=== PATIENT | male | born 1995 | race Hispanic/Latino ===

== ENCOUNTER 2022-03-26 09:03 | Emergency (ER) | payer OTHER ==
[~2022-03-26] VITALS: Ht 162.6 cm; Wt 70.0 kg
[2022-03-26] MEDS ORDERED: AZITHROMYCIN1 GM PO (09:14)
[2022-03-26] MEDS ORDERED: 12HOUR DECONGE120 MG PO (09:46)
[2022-03-26] MEDS ORDERED: MOTRIN800 MG PO (09:46)
[2022-03-26] MEDS ORDERED: BACTRIM DS1 TAB PO (09:46)
[2022-03-26 09:54] VITALS: BP 135/77
== END 2022-03-26 10:06 | disposition home or self-care (01) | DRG 153 ==
LOC: ED 09:03
DX: J01.10 Acute frontal sinusitis, unspecified (principal)

== ENCOUNTER 2022-04-04 23:57 | Emergency (ER) | payer OTHER ==
[~2022-04-04] VITALS: Ht 162.6 cm; Wt 69.0 kg
[~2022-04-04 23:57] MED LIST: 12HOUR DECONGE120 MG PO; AZITHROMYCIN1 GM PO; BACTRIM DS1 TAB PO; MOTRIN800 MG PO
[2022-04-05 00:37] LABS: BASO% 0.2 % (0-3); EOS% 0.8 % (0-8); HEMATOCRIT 46.4 % (39.0-50.0); HEMOGLOBIN 15.6 g/dl (14.0-18.0); IMMATURE GRANULOCYTES 0.1 % (0.0-5.0); LYMPH% 29.1 % (15-41); MEAN CELL VOLUME 92.8 fL CALC (80.0-100.0); MEAN CORPUSCULAR HGB 31.2 pG CALC (26.0-32.0); MEAN CORPUSCULAR HGB CONC 33.6 g/dL CAL (32.0-36.0); MONO% 8.9 % (2-13); NEUT# 8.72 thou/uL (1.82-7.42); NEUT% 60.9 % (42-76); RED CELL DISTRI WIDTH 11.3 % (11.5-15.5)
[2022-04-05 00:56] LABS: ALBUMIN 4.6 g/dL (3.2-5.0); ALKALINE PHOSPHATASE 77 u/l (38-126); ANION GAP 12 (6-22 (CALC)); BILIRUBIN, TOTAL 0.5 mg/dL (0.0-1.4); BUN 20 mg/dL (9-20); BUN/CREATININE RATIO 20 (12-20 (CALC)); CARBON DIOXIDE 27 mmol/l (22-30); CHLORIDE 104 mmol/l (95-108); GFR FOR AFR.AMER. > 60 ML/MIN (>=60 (CALC)); GFR OTHER RACES > 60 ML/MIN (>=60 (CALC)); LIPASE 81 u/l (23-300); POTASSIUM 3.8 mmol/l (3.5-5.1); SGOT/AST 72 u/l (17-59); SODIUM 139 mmol/l (137-146); TOTAL PROTEIN 7.9 g/dL (6.3-8.2)
[2022-04-05 01:06] LABS: ACT PARTIAL THROMBO TIME 26.6 SECONDS (20.0-32.5)
[2022-04-05 01:07] LABS: CPK 2409 u/l (52-200); MYOGLOBIN 222 ng/mL (0 - 121)
[2022-04-05 01:15] LABS: D-DIMER 0.17 mg/L (0.19-0.60)
[2022-04-05] MEDS ORDERED: VOLTAREN75 MG PO (01:43)
[2022-04-05 01:46] VITALS: BP 118/78
== END 2022-04-05 01:54 | disposition home or self-care (01) | DRG 313 ==
LOC: ED 23:57
PROVIDERS: Family Medicine
DX: R07.89 Other chest pain (principal); M60.9 Myositis, unspecified

== ENCOUNTER 2022-09-17 14:04 | Emergency (ER) | payer OTHER ==
[2022-09-17] VITALS (8 sets, daily range): BP systolic 116–128; BP diastolic 72–95
[~2022-09-17] VITALS: Ht 162.6 cm; Wt 71.0 kg
[~2022-09-17 14:04] MED LIST changes: +VOLTAREN75 MG PO
[2022-09-17] MEDS ORDERED: VOLTAREN1%GEL TOP (16:03)
[2022-09-17] MEDS ORDERED: NAPROXEN500 MG PO (16:03)
== END 2022-09-17 16:18 | disposition home or self-care (01) | DRG 556 ==
LOC: ED 14:04
DX: M79.675 Pain in left toe(s) (principal)